=== PATIENT | male | born 1955 | race Hispanic/Latino ===

== ENCOUNTER 2017-09-08 11:47 | Day surgery (SDC) | payer BC ==
--- NOTE | 2017-09-07 14:40 | RAD REPORT ---
EXAM DESCRIPTION: RADOP - Outpt Chest Pa/Lat (2 Views) - 09/07/2017 2:00 pm CLINICAL HISTORY: Preop chest COMPARISON: May 2012 TECHNIQUE: PA and lateral views of the chest were obtained. FINDINGS: The lungs are clear. Lung markings are similar to comparison. No mediastinal or hilar abno rmality. Heart size is normal and central vasculature is within normal limits. No pleural effusion or pneumothorax seen. No acute bony finding noted. No acute aortic finding. No significant interval change. IMPRESSION: No acute cardiopulmonary process.
[2017-09-07 14:52] LABS: Urine Appearance CLEAR; Urine Bilirubin NEGATIVE (NEG); Urine Blood NEGATIVE (NEG); Urine Color YELLOW; Urine Glucose NEGATIVE (NEG); Urine Protein NEGATIVE (NEG)
[2017-09-07 15:00] LABS: Absolute Monocytes 0.4 K/uL (0.1-1.3); Absolute Neutrophil 3.3 K/uL (1.8-8.0); Basophils % 0.2 % (0-1.3); Eosinophils % 3.5 % (0-4.4); Hematocrit 38.5 % (39.6-49.0); Lymphocytes % 33.5 % (15.3-44.8); MCH 28.7 pg (27.0-35.0); MCV 84.1 fL (80-100); MPV 8.1 fL (7.6-11.3); Monocytes % 6.2 % (3.3-12.3); RBC Red Blood Cell Count 4.57 M/uL (4.33-5.43)
[2017-09-07 15:02] LABS: Urine Microscopic Reflex NO UMIC
[2017-09-07 15:03] LABS: Protime INR 1.06
[2017-09-07 15:11] LABS: BUN Blood Urea Nitrogen 12 mg/dL (6-20); Bicarbonate 26 mEq/L (21-31); Glomerular Filtration Rate > 90 mL/min (=/>90); Glucose Level 155 mg/dL (65-120); Potassium 4.1 mEq/L (3.6-5.0); Sodium Level 139 mEq/L (135-145)
--- NOTE | 2017-09-07 16:26 | EKG ---
Test Date: 2017-09-07 Test Time: 13:49:49 Medical Radiation Therapist: ANGELA MEASUREMENT RESULTS: Intervals: Rate: 73 WA: 184 QRSD: 106 QT: 382 QTc: 420 Murdock: P: 26 WA: 184 QRS: 28 T: 48 INTERPRETIVE STATEMENTS: Normal sinus rhythm Normal ECG Compared to ECG 04/22/2001 22:00:00 T-wave abnormality no longer present Electronically Signed On 09-07-17 16:24:28 CDT by Nish Delarosa
--- OUTSIDE RECORDS SUMMARY | 2017-09-08 11:58 | XMS REPORT ---
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 Problem Diabetes type 2, controlled E11.9 Active Problem Hyperlipemia, mixed E78.2 Active Assessment Allergic rhinitis, unspecified J30.9 Active seasonality, unspecified trigger Assessment Generalized osteoarthritis of M15.9 Active multiple sites Assessment Elevated PSA R97.20 Active Assessment Hyperlipemia, mixed E78.2 Active Medications Medication Code Code Instructions Start End Date Status Dosage System Date Aspirin [facility] 96498290063 81 MG Orally Active 1 tablet Once a day Lipitor ND 52575868420 10 MG Orally Active 1 tablet Once a day Metformin HCl ND 59327682268 1000 MG Orally Active 1 tablet Twice a day with meals Results No Known Results Summary Purpose eClinicalWorks Submission
[2017-09-08] MEDS ORDERED: NA CHLORIDE 0.9% 1,000 ML ONE (12:14)
[2017-09-08] MEDS: GENTAMICIN 80 MG/100 ML BAG 80 MG/100 ML BAG IV ONE ×3 (13:20→13:35)
[2017-09-08] MEDS ORDERED: PROPOFOL 200 MG/20 ML VIAL IV ONE (13:29)
[2017-09-08] MEDS ORDERED: FENTANYL CITR 100 MCG/2 ML ONE (13:29)
[2017-09-08] MEDS ORDERED: MIDAZOLAM HCL 2 MG/2 ML INJ ONE (13:29)
[2017-09-08] MEDS ORDERED: LIDOCAINE 2% MPF 5 ML VIAL ONE (13:30)
[2017-09-08] MEDS ORDERED: ONDANSETRON 4 MG/2 ML VIAL ONE (13:30)
[2017-09-08] MEDS ORDERED: PHENAZOPYRIDINE 100MG TAB PO ONE (15:13)
[2017-09-08] MEDS ORDERED: OXYBUTYNIN CHLORIDE 5 MG TAB ONE (15:14)
[2017-09-08] MEDS ORDERED: MEPERIDINE HCL 25 MG/0.5 ML ONE (15:25)
[2017-09-08 15:42] VITALS: BP 125/58; TEMP 97.9; O2SAT 95
== END 2017-09-08 16:10 | disposition home or self-care (01) ==
LOC: OR 11:47
PROVIDERS: ATTEND Urology
PROC: 0T7D8DZ Dilation of Urethra with Intraluminal Device, Via Natural or Artificial Opening Endoscopic (ICD-10-PCS; 2017-09-08)
PROC: 0VT08ZZ Resection of Prostate, Via Natural or Artificial Opening Endoscopic (ICD-10-PCS; principal; 2017-09-08 13:15)
DX: N40.1 Benign prostatic hyperplasia with lower urinary tract symptoms (principal); R39.12 Poor urinary stream; N42.9 Disorder of prostate, unspecified; R97.20 Elevated prostate specific antigen [PSA]; M15.9 Polyosteoarthritis, unspecified; E11.9 Type 2 diabetes mellitus without complications; K21.9 Gastro-esophageal reflux disease without esophagitis; Z88.0 Allergy status to penicillin; Z82.49 Family history of ischemic heart disease and other diseases of the circulatory system
CPT/HCPCS: 36415; 71046; 80048; 81003; 82962; 85025; 85610; 85730; 87086; 87088; 93005; J1580; J2175; J2250; J2405; J3010; J7030

== ENCOUNTER 2022-03-03 09:18 | Emergency (ER) | payer OTHER ==
--- OUTSIDE RECORDS SUMMARY | 2022-03-03 09:24 | XMS REPORT | Continuity of Care Document ---
:[address] [facility] t Address [address] [place] [address] Care Team Providers Name Role Phone Pcp, Patient Does Not Have A Primary Care Physician [id number] sAh Potts Attending Clinician Unavailable Nurse, Adc Pob Immunization Attending Clinician Unavailable Deepak Marsh DO Attending Clinician Problems This patient has no known problems. Allergies, Adverse Reactions, Alerts Allergy Allergy Status Severity Reaction(s) Onset Inactive Treating Comm ents Source Name Type Date Date Clinician penicill Adverse Active Info Not Commo n in Reaction Available [facility] Social History Social Habit Start Date Stop Date Quantity Comments Source Sex Assigned At [birth year] [facility] 00:00:00 00:00:00 Medical Branch Medications Ordered Filled Start Stop Current Ordering Indication Dosage Frequency Signature Comments Components Source Medication Medication Date Date Medication? Clinician (SIG) Name Name Metformin Metformin Yes Ash 1 tablet Common HCl HCl Potts with meals [facility] Montelukast Montelukast Yes Ash 1 tablet Common Sodium Sodium Potts in the [facility] Aspirin Aspirin Yes Ash 1 tablet Com mon Potts [facility] Lipitor Lipitor Yes Ash 1 tablet Com mon Potts [facility] Metformin Metformin Yes Ash TAKE 1 C ommon HCl HCl Potts TABLET BY Spirit MOUTH - CHI TWICE A DAY WITH [facility] Lipitor Lipitor Yes Ash 1 tablet Com mon Potts [facility] Immunizations Ordered Filled Immunization Date Status Comments Sour e Immunization Name Name SARS-COV-2 COVID-19 2020-10-18 Completed Unive rsity of PFIZER VACCINE 00:00:00 [place] [facility] Prevnar 13 Prevnar 13 2019-04-24 Completed [facility] - -Pneumonia Vaccine -Pneumonia Vaccine 00:00:00 [facility] FluAD FluAD 2019-04-07 Completed [facility] - 00:00:00 [facility] Procedures Procedure Date / Time Performed Performing Clinician [facility] e SARS-COV-2 COVID-19 2020-10-18 14:32:00 Doctor Unassigned, No [facility] [place] VACCINE,0.3ML,IM Name Medical Branch (PFIZER) Plan of Care Planned Activity Planned Date Details Comments Source Future Scheduled 2021-02-12 INFLUENZA VACCINE Univer [facility] Test 00:00:00 (Season Ended) [code = Medic al Branch INFLUENZA VACCINE (Season Ended)] Future Scheduled 2020-11-08 SARS[facility]-19[facility] Vaccine (2 - Pfizer Medical Branch 2-dose series) [code = SARS-CoV-2 (COVID-19) Vaccine (2 - Pfizer 2-dose series)] Future Scheduled 2018 Medicare Annual [facility] Test 00:00:00 Wellness Visit Medical [facility] (procedure) [code = 976313269344549] Future Scheduled 2018 PNEUMOCOCCAL VACCINES [facility] [place] Test 00:00:00 65+ (1 of 1 - PPSV23) Medica l Branch [code = PNEUMOCOCCAL VACCINES 65+ (1 of 1 - PPSV23)] Future Scheduled 2003-09-25 [facility] colorectal cancer Medical Br anch screening (procedure) [code = 098225377518522] Future Scheduled 2003-09-25 Flexible fiberoptic Univ ersity [facility] Test 00:00:00 sigmoidoscopy Medical Branch (procedure) [code = 66915073] Future Scheduled 2003-09-25 Screening for University [facility] Test 00:00:00 malignant neoplasm of Medica l Branch colon (procedure) [code = 757520826] Future Scheduled 2003-09-25 Screening for University [facility] Test 00:00:00 malignant neoplasm of Medica l Branch colon (procedure) [code = 573747954] Future Scheduled 2003-09-25 Zoster Recombinant [facility] [place] Test 00:00:00 Vaccine (SHINGRIX) (1 Medica l Branch of 2) [code = Zoster Recombinant Vaccine (SHINGRIX) (1 of 2)] Future Scheduled 2003-09-25 Screening for occult [facility] [place] Test 00:00:00 blood in feces Medical [facility] (procedure) [code = 165359493] Future Scheduled 1972 DTaP,Tdap,and Td [facility] [place] Test 00:00:00 Vaccines (1 - Tdap) Medical Branch [code = DTaP,Tdap,and Td Vaccines (1 - Tdap)] Future Scheduled 1971-09-25 Hepatitis C screening [facility] [place] Test 00:00:00 (procedure) [code = Medical Branch 833420944] Future Scheduled 1965 Depression screening [facility] [place] Test 00:00:00 (procedure) [code = Medical Branch 068786352] Encounters Start End Encounter Admission Attending Care Care Encounter Source Date/Time Date/Time Type Type Clinicians Facility Department ID 2022-02-05 Outpatient Potts, [facility] [id number] Common 10:41:01 Ash [facility] 2021-12-22 Outpatient Potts, [facility] [id number] Common 13:11:00 Ash [facility] 2021-11-07 Outpatient Potts, [facility] [id number] Common 12:19:00 Ash [facility] 2021-11-05 Outpatient Potts, [facility] [id number] Common 08:58:00 Ash [facility] 2021-10-10 Outpatient Potts, [facility] [id number] Common 10:27:01 Ash [facility] 2021-07-09 Outpatient Potts, [facility] ST[facility] [id number] Common 14:23:06 Ash 67027 [facility] 2021-07-09 Outpatient Potts, STLMLC STLMLC [id number] Common 13:08:38 Ash 62919 [facility] 2021-07-09 Outpatient Potts, STLMLC STLMLC [id number] Common 12:36:47 Ash 65864 [facility] 2021-07-09 Outpatient Potts, STLMLC STLMLC [id number] Common 12:36:24 Ash 45683 [facility] 2021-07-09 Outpatient Potts, STLMLC STLMLC [id number] Common 12:34:30 Ash 38369 [facility] 2021-07-09 Outpatient Potts, STLMLC STLMLC [id number] Common 11:19:29 Ash 55017 [facility] 2021-07-09 Outpatient Potts, STLMLC STLMLC [id number] Common 11:16:51 Ash 50955 [facility] 2021-07-09 Outpatient Potts, STLMLC STLMLC [id number] Common 11:04:36 Ash [id number] [facility] 2022-02-06 2022-02-06 ambulatory STLMLC STLMLC [id number] Common 00:00:00 00:00:00 [facility] 2021-11-07 2021-11-07 ambulatory STLMLC STLMLC [id number] Common 00:00:00 00:00:00 [facility] 2021-11-07 2021-11-07 ambulatory STLMLC STLMLC [id number] Common 00:00:00 00:00:00 [facility] 2021-05-16 2021-05-16 ambulatory STLMLC STLMLC [id number] Common 00:00:00 00:00:00 [facility] 2021-01-31 2021-01-31 Outpatient STLMLC STLMLC [id number] Common 00:00:00 00:00:00 [facility] 2021-01-31 2021-01-31 Outpatient STLMLC STLMLC [id number] Common 00:00:00 00:00:00 [facility] 2020-08-16 2020-08-16 Outpatient STLMLC STLMLC [id number] Common 00:00:00 00:00:00 [facility] 2020-05-17 2020-05-17 Outpatient STLMLC STLMLC [id number] Common 00:00:00 00:00:00 [facility] 2020-01-12 2020-01-12 [id number] Common 08:15:00 08:15:[address] [facility] 2019-10-11 2019-10-11 [facility] [id number] Common 15:30:00 15:30:[address] [facility] 2019-07-14 2019-07-14 [facility] [id number] Common 10:15:00 10:15:[address] [facility] 2019-05-18 2019-05-18 [facility] [id number] Common 16:02:00 16:02:[address] [facility] 2019-04-24 2019-04-24 [facility] [id number] Common 14:30:00 14:30:[address] [facility] 2019-04-07 2019-04-07 [facility] [id number] Common 10:00:00 10:00:[address] [facility] 2019-03-24 2019-03-24 [facility] [id number] Common 14:41:00 14:41:[address] [facility] 2018-08-16 2018-08-16 [facility] [id number] Common 09:15:00 09:15:[address] [facility] 2018-07-29 2018-07-29 [facility] [id number] Common 09:30:00 09:30:[address] [facility] 2018-07-25 2018-07-25 [facility] [id number] Common 10:03:00 10:03:[address] [facility] 2017-12-03 2017-12-03 [facility] [id number] Common 10:15:00 10:15:[address] [facility] 2017-09-30 2017-09-30 [facility] [id number] Common 13:00:00 13:00:[address] [facility] 2017-09-03 2017-09-03 [facility] [id number] Common 10:00:00 10:00:[address] [facility] Results This patient has no known results.
[2022-03-03] MEDS ORDERED: ACETAMINOPHEN 325 MG TABLET ONE (10:37)
--- NOTE | 2022-03-03 11:26 | RAD REPORT ---
EXAM DESCRIPTION: RAD - Chest Single View - 03/03/2022 10:56 am CLINICAL HISTORY: FEVER, flu-like symptoms COMPARISON: Two view chest August 2017 TECHNIQUE: AP portable chest image was obtained 03/03/2022 10:56 am . FINDINGS: No acute lung parenchymal process. Interstitial pattern matches comparison when adjusting for technique and inspiratory differences. No hilar mass or lymphadenopathy. Heart and vasculature ar e normal. No measurable pleural effusion and no pneumothorax. No acute bony abnormality seen. No acut e aortic findings suspected. IMPRESSION: No acute cardiopulmonary process. No significant change from comparison study.
[2022-03-03 12:05] LABS: Urine Blood Negative (Negative); Urine Glucose Negative (Negative); Urine Protein 1+ (Negative); Urine Specific Gravity >=1.030 (1.005-1.030); Urine pH 5.5 (5.0-7.0)
[2022-03-03 12:16] LABS: Absolute Lymphocytes (CBC) 0.9 K/uL (0.7-4.9); Hematocrit 37.5 % (39.6-49.0); MCV 83.5 fL (80-100); MPV 7.2 fL (7.6-11.3); RBC Red Blood Cell Count 4.49 M/uL (4.33-5.43)
[2022-03-03 12:41] LABS: Albumin 3.9 g/dL (3.4-5.0); Bilirubin Total 2.6 mg/dL (0.2-1.0); Potassium 3.9 mmol/L (3.5-5.1); Protein, Total 7.6 g/dL (6.4-8.2)
[2022-03-03 13:14] LABS: Protime INR 1.09
--- NOTE | 2022-03-03 13:46 | ER ---
Nurse's Notes [facility] Name: Von Hernandez Age: 66 yrs Sex: Male : 1955 Arrival Date: 03/03/2022 Time: 09:23 Bed 11 Private MD: Ash Potts Diagnosis: Viral Syndrome Presentation: 03/03 09:35 Chief complaint: Patient states: I have lots of cold and want to know why, my bones jh5 hurt. Coronavirus screen: Vaccine status: Patient reports receiving the 2nd dose of the covid vaccine. Client denies travel out of the [place] in the last 14 days. Ebola Screen: Patient negative for fever greater than or equal to 101.5 degrees Fahrenheit, and additional compatible Ebola Virus Disease symptoms Patient denies exposure to infectious person. Patient denies travel to an Ebola-affected area in the 21 days before illness onset. Initial Sepsis Screen: Does the patient meet any 2 criteria? No. Patient's initial sepsis screen is negative. Does the patient have a suspected source of infection? No. Patient's initial sepsis screen is negative. Risk Assessment: Do you want to hurt yourself or someone else? Patient reports no desire to harm self or others. Onset of symptoms was March 03, 2022. 09:35 Method Of Arrival: Ambulatory [facility] 09:35 Acuity: JOSTIN 4 jh5 Triage Assessment: 09:37 General: Appears in no apparent distress. Behavior is calm, cooperative, appropriate jh5 for age. Pain: Denies pain. Historical: - Allergies: 09:37 PENICILLINS; jh5 - Immunization history:: Adult Immunizations up to date. - Social history:: Smoking status: Patient denies any tobacco usage or history of. Patient uses. Screenin:46 Abuse screen: Denies threats or abuse. Nutritional screening: No deficits noted. ap3 Tuberculosis screening: No symptoms or risk factors identified. Fall Risk None identified. Assessment: 11:46 Reassessment: No changes from previously documented assessment. Patient and/or family ap3 updated on plan of care and expected duration. Pain level reassessed. Patient is alert, oriented x 3, equal unlabored respirations, skin warm/dry/pink. 12:05 Reassessment: No changes from previously documented assessment. Patient and/or family ap3 updated on plan of care and expected duration. Pain level reassessed. Patient is alert, oriented x 3, equal unlabored respirations, skin warm/dry/pink. 13:17 Reassessment: Patient and/or family updated on plan of care and expected duration. Pain ap3 level reassessed. Patient is alert, oriented x 3, equal unlabored respirations, skin warm/dry/pink. Vital Signs: 09:35 BP 157 / 86; Pulse 96; Resp 18; Temp 100.6; Pulse Ox 99% ; Weight 78.02 kg; Height 5 [facility] ft. 3 in. (160.02 cm); Pain 0/10; 09:35 Body Mass Index 30.47 (78.02 kg, 160.02 cm) [facility] ED Course: 09:23 Patient arrived in ED. mr 09:24 Ash Potts DO is Private Physician. mr 09:29 Chang Barger PA is PHCP. [facility] 09:29 Leida Richey MD is Attending Physician. [facility] 09:37 Triage completed. [facility] 09:37 Arm band placed on right wrist. [facility] 10:15 Laurita Pettit, RN is Primary Nurse. ap3 10:58 Chest Single View XRAY In Process Unspecified. EDMS 11:46 Patient has correct armband on for positive identification. Bed in low position. Call ap3 light in reach. Side rails up X 1. Pulse ox on. NIBP on. Door closed. Noise minimized. 11:59 Inserted saline lock: 20 gauge in right forearm, using aseptic technique. Blood kc6 collected. 11:59 [place] Screen Profile Sent. kc6 11:59 PT-INR Sent. kc6 12:00 Lactate Sent. kc6 12:00 CMP Sent. kc6 12:00 CBC with Diff Sent. kc6 12:00 Strep Sent. kc6 12:05 Urine Culture Sent. kc6 13:45 Ash Potts DO is Referral Physician. [facility] 14:02 No provider procedures requiring assistance completed. intact, bleeding controlled, No ap3 redness/swelling at site. Pressure dressing applied. Administered Medications: 10:30 Drug: Acetaminophen 650 mg Route: PO; ap3 11:41 Follow up: Response: No adverse reaction; Pain is decreased ap3 Medication: 11:46 VIS not applicable for this client. ap3 Outcome: 13:46 Discharge ordered by MD. michele 14:02 Discharged to home ambulatory. ap3 14:02 Condition: good 14:02 Discharge instructions given to patient, Instructed on discharge instructions, follow up and referral plans. Demonstrated understanding of instructions, follow-up care. 14:02 Patient left the ED. ap3 Signatures: Dispatcher [employer] EDMS Chang Barger PA PA jmm Lashaun Becker mr Laurita diaz RN RN ap3 Jennie Edwards RN RN 5 Beth Cortes 6
--- NOTE | 2022-03-03 13:46 | EDPHYS ---
Physician Documentation [facility] Name: Von Hernandez Age: 66 yrs Sex: Male : 1955 Arrival Date: 03/03/2022 Time: 09:23 Bed 11 Private MD: Lashon Pottsh ED Physician Leida Richey HPI: 03/03 09:40 This 66 yrs old Male presents to ER via Ambulatory with complaints of Flu jmm Symptoms. 09:40 Onset: The symptoms/episode began/occurred gradually, 5 day(s) ago. This is a jmm 66-year-old male presents emergency department with complaints of body aches, headache, fever beginning approximately 5 days ago. Patient states previously he was diagnosed with pneumonia when he presented with similar symptoms. Denies sore throat, cough, shortness of breath, abdominal pain, vomiting, diarrhea.. Historical: - Allergies: 09:37 PENICILLINS; jh5 - Immunization history:: Adult Immunizations up to date. - Social history:: Smoking status: Patient denies any tobacco usage or history of. Patient uses. ROS: 09:40 Constitutional: Positive for body aches, fever. jmm 09:40 Neuro: Positive for headache. 09:40 All other systems are negative. Exam: 09:40 Constitutional: This is a well developed, well nourished patient who is awake, alert, jmm and in no acute distress. Head/Face: atraumatic. Eyes: EOMI, no conjunctival erythema appreciated ENT: Moist Mucus Membranes Neck: Trachea midline, Supple Chest/axilla: Normal chest wall appearance and motion. Cardiovascular: Regular rate and rhythm. No edema appreciated Respiratory: Normal respirations, no respiratory distress appreciated Abdomen/GI: Non distended Back: Normal ROM Skin: General appearance color normal MS/ Extremity: Moves all extremities, no obvious deformities appreciated, no edema noted to the lower extremities Neuro: Awake and alert Psych: Behavior is normal, Mood is normal, Patient is cooperative and pleasant Vital Signs: 09:35 BP 157 / 86; Pulse 96; Resp 18; Temp 100.6; Pulse Ox 99% ; Weight 78.02 kg; Height 5 jh5 ft. 3 in. (160.02 cm); Pain 0/10; 09:35 Body Mass Index 30.47 (78.02 kg, 160.02 cm) jh5 MDM: 10:30 Patient medically screened. [facility] 13:45 Data reviewed: vital signs, nurses notes. Counseling: I had a detailed discussion with [facility] the patient and/or guardian regarding: the historical points, exam findings, and any diagnostic results supporting the discharge/admit diagnosis, the need for outpatient follow up, to return to the emergency department if symptoms worsen or persist or if there are any questions or concerns that arise at home. 15:21 Refusal of service: The patient/guardian displays adequate decision making capability [facility] and despite a detailed discussion of alternatives, benefits, risks, and consequences refuses: Lumbar Puncture procedure. 15:21 ED course: Patient states feeling much better. Labs were unremarkable. I did discuss leny possibly viral meningitis causing his symptoms. And he would need a spinal tap for further evaluation. Patient declined. Patient otherwise given strict return precautions. Patient understood agrees plan of care.. 03/03 09:40 Order name: COVID-19 SARS RT PCR (Document "Date of Onset" if Symptomatic); Complete bd Time: 10:59 03/03 09:40 Order name: Flu; Complete Time: 10:39 bd 03/03 11:27 Order name: Strep; Complete Time: 12:53 [facility] 03/03 11:27 Order name: CBC with Diff; Complete Time: 12:30 [facility] 03/03 11:27 Order name: CMP; Complete Time: 12:45 [facility] 03/03 11:27 Order name: Lactate; Complete Time: 12:40 [facility] 03/03 10:39 Order name: Chest Single View XRAY; Complete Time: 11:27 [facility] 03/03 11:28 Order name: Urine Dipstick-Ancillary (obtain specimen); Complete Time: 12:05 [facility] 03/03 11:28 Order name: Urine Culture [facility] 03/03 11:28 Order name: PT-INR; Complete Time: 13:21 [facility] 03/03 11:28 Order name: [place] Screen Profile; Complete Time: 13:21 [facility] 03/03 12:05 Order name: Urine Dipstick-Ancillary; Complete Time: 12:05 EDMS 03/03 12:53 Order name: Throat Culture EDMS Administered Medications: 10:30 Drug: Acetaminophen 650 mg Route: PO; ap3 11:41 Follow up: Response: No adverse reaction; Pain is decreased ap3 Disposition Summary: 03/03/22 13:46 Discharge Ordered Location: Home [facility] Condition: Stable [facility] Diagnosis - Viral Syndrome [facility] Followup: [facility] - With: Ash Potts, DO - When: 1 - 2 days - Reason: Recheck today's complaints, Continuance of care, Re-evaluation by your physician Discharge Instructions: - Discharge Summary Sheet [facility] - Viral Illness, Adult [facility] Forms: - Medication Reconciliation Form [facility] - Thank You Letter [facility] - Antibiotic Education [facility] - Work release form [facility] - Prescription Opioid Use [facility] Signatures: Dispatcher [employer] EDMS Chang Barger PA PA jmm Prokisch, Amanda RN RN ap3 Jennie Edwards RN RN jh5
[2022-03-04 16:10] VITALS: BP 157/86; TEMP 100.6; O2SAT 99
== END 2022-03-03 14:02 | disposition home or self-care (01) ==
LOC: ER 09:18
DX: B34.9 Viral infection, unspecified (principal); Z88.0 Allergy status to penicillin; Z20.822 Contact with and (suspected) exposure to COVID-19
CPT/HCPCS: 87070; 87088; 85025; 87086; 36415; 86308; 85610; 87081; 83605; 81003; 80053; 87804 ×2; 71045; U0003; 99284

== ENCOUNTER 2022-07-16 09:33 | Emergency (ER) | payer OTHER ==
--- NOTE | 2022-07-16 09:53 | ER ---
Nurse's Notes [facility] Name: Von Hernandez Age: 66 yrs Sex: Male : 1955 Arrival Date: 07/16/2022 Time: 09:37 Bed 12 Private MD: Diagnosis: Acute sinusitis, unspecified Presentation: 07/16 09:48 Chief complaint: Patient states: Sinus congestion, HIGHTOWER, sinus pressure for 1 month. ll1 Coronavirus screen: Vaccine status: Patient reports receiving the 2nd dose of the covid vaccine. Client denies travel out of the [place] in the last 14 days. At this time, the client does not indicate any symptoms associated with coronavirus-19. Ebola Screen: Patient denies travel to an Ebola-affected area in the 21 days before illness onset. Initial Sepsis Screen: Does the patient meet any 2 criteria? No. Patient's initial sepsis screen is negative. Does the patient have a suspected source of infection? Yes: Other: sinus infection. Risk Assessment: Do you want to hurt yourself or someone else? Patient reports no desire to harm self or others. Onset of symptoms was June 15, 2022. 09:48 Method Of Arrival: Ambulatory ll1 09:48 Acuity: JOSTIN 4 ll1 Historical: - Allergies: 09:48 PENICILLINS; ll1 - PMHx: 09:48 Diabetes mellitus; Hypercholesterolemia; ll1 - PSHx: 09:48 hernia repair; ll1 - Immunization history:: Adult Immunizations up to date. - Social history:: Smoking status: Patient denies any tobacco usage or history of. Screenin:04 [facility] ED Fall Risk Assessment (Adult) History of falling in the last 3 months, ss including since admission No falls in past 3 months (0 pts). Abuse screen: Denies threats or abuse. Denies injuries from another. Nutritional screening: No deficits noted. Tuberculosis screening: Never had TB. Assessment: 10:04 General: Appears in no apparent distress. comfortable, Behavior is calm, cooperative. ss Neuro: Level of Consciousness is awake, alert, obeys commands. Cardiovascular: Capillary refill < 3 seconds is brisk in bilateral fingers. Respiratory: Airway is patent Respiratory effort is even, unlabored, Respiratory pattern is regular, symmetrical. Derm: Skin is intact, is healthy with good turgor, Skin is pink, warm \T\ dry. normal. Vital Signs: 09:48 BP 158 / 88; Pulse 77; Resp 20; Temp 99.1; Pulse Ox 100% ; Weight 77.11 kg; Height 5 ll1 ft. 3 in. (160.02 cm); Pain 8/10; 09:48 Body Mass Index 30.11 (77.11 kg, 160.02 cm) ll1 ED Course: 09:37 Patient arrived in ED. rg4 09:43 Viky Delacruz FNP-C is [facility]. kb 09:43 Salvador Healy DO is Attending Physician. kb 09:48 Arm band placed on. ll1 09:50 Triage completed. ll1 10:04 Adriana Spivey RN is Primary Nurse. ss 10:04 Patient has correct armband on for positive identification. ss 10:04 No provider procedures requiring assistance completed. Patient did not have IV access ss during this emergency room visit. Administered Medications: 09:55 Drug: Decadron (dexamethasone) 10 mg Route: IM; Site: left gluteus; ll1 10:05 Follow up: Response: No adverse reaction ss Medication: 10:04 VIS not applicable for this client. ss Outcome: 09:53 Discharge ordered by MD. kb 10:05 Discharged to home ambulatory. ss 10:05 Condition: good 10:05 Discharge instructions given to patient, family, Instructed on discharge instructions, follow up and referral plans. medication usage, Demonstrated understanding of instructions, follow-up care, medications, Prescriptions given X 2. 10:05 Patient left the ED. ss Signatures: Viky Delacruz FNP-C [employer] Adriana Spivey RN RN Destini Jimenez rg4 Charito Ramirez RN RN 1
--- NOTE | 2022-07-16 09:54 | EDPHYS ---
Physician Documentation [facility] Name: Von Hernandez Age: 66 yrs Sex: Male : 1955 Arrival Date: 07/16/2022 Time: 09:37 Bed 12 Private MD: ED Physician Salvador Healy HPI: 07/16 09:48 This 66 yrs old Male presents to ER via Unassigned with complaints of Sinus kb Congestion. 09:48 The patient or guardian reports Sinus pressure, congestion, headaches. Onset: The kb symptoms/episode began/occurred 1 month(s) ago. Severity of symptoms: At their worst the symptoms were moderate, in the emergency department the symptoms are unchanged. Modifying factors: The symptoms are alleviated by nothing, the symptoms are aggravated by nothing. Associated signs and symptoms: Pertinent positives: rhinorrhea, Pertinent negatives: chest pain, diarrhea, ear ache, fever, nausea, sore throat, vomiting. The patient has experienced similar episodes in the past. The patient has not recently seen a physician. Patient reports nasal congestion, sinus pressure and headaches for 1 month. States has been taking Benadryl which helped rhinorrhea but has not cleared sinuses.. Historical: - Allergies: 09:48 PENICILLINS; ll1 - PMHx: 09:48 Diabetes mellitus; Hypercholesterolemia; ll1 - PSHx: 09:48 hernia repair; ll1 - Immunization history:: Adult Immunizations up to date. - Social history:: Smoking status: Patient denies any tobacco usage or history of. ROS: 09:49 Constitutional: Negative for fever, chills, and weight loss. kb 09:49 ENT: Positive for sinus congestion, sinus pain. 09:49 Neuro: Positive for headache. 09:49 All other systems are negative. Exam: 09:49 Constitutional: This is a well developed, well nourished patient who is awake, alert, kb and in no acute distress. Cardiovascular: Regular rate and rhythm with a normal S1 and S2. No gallops, murmurs, or rubs. No pulse deficits. Respiratory: Respirations even and unlabored. No increased work of breathing. Talking in full sentences Abdomen/GI: Soft, non-tender. No distention Skin: Warm, dry with normal turgor. Normal color. MS/ Extremity: Pulses equal, no cyanosis. Neurovascular intact. Full, normal range of motion. Neuro: Awake and alert, GCS 15, oriented to person, place, time, and situation. Moves all extremities. Normal gait. 09:49 Head/face: Sinus tenderness, that is moderate, is located over the right frontal sinus, left frontal sinus, right ethmoid sinus and left ethmoid sinus. Vital Signs: 09:48 BP 158 / 88; Pulse 77; Resp 20; Temp 99.1; Pulse Ox 100% ; Weight 77.11 kg; Height 5 ll1 ft. 3 in. (160.02 cm); Pain 8/10; 09:48 Body Mass Index 30.11 (77.11 kg, 160.02 cm) ll1 MDM: 09:43 Patient medically screened. kb 09:49 Data reviewed: vital signs, nurses notes. Test considered but Not performed: Labs: Flu kb and COVID test considered but would not change plan of care. Counseling: I had a detailed discussion with the patient and/or guardian regarding: the historical points, exam findings, and any diagnostic results supporting the discharge/admit diagnosis, the need for outpatient follow up, a family practitioner, to return to the emergency department if symptoms worsen or persist or if there are any questions or concerns that arise at home. ED course: Patient is a 66-year-old male with sinus congestion and pressure as well as headache for 1 month. Physical exam positive for tenderness to sinuses. Lungs clear throughout, no respiratory distress. Discussed steroids and antibiotics due to length of illness. Patient in agreement with plan of care.. Administered Medications: 09:55 Drug: Decadron (dexamethasone) 10 mg Route: IM; Site: left gluteus; ll1 10:05 Follow up: Response: No adverse reaction ss Disposition: 19:19 Co-signature as Attending Physician, Salvador Healy DO I reviewed the patient's care ms3 provided by the Advanced Practice Provider and agree with the diagnosis and treatment plan. Disposition Summary: 07/16/22 09:53 Discharge Ordered Location: Home kb Condition: Stable kb Diagnosis - Acute sinusitis, unspecified kb Followup: kb - With: Emergency Department - When: As needed - Reason: Worsening of condition Followup: kb - With: Private Physician - When: 2 - 3 days - Reason: Recheck today's complaints, Continuance of care, Re-evaluation by your physician Discharge Instructions: - Sinusitis, Adult, [id number] kb - Discharge Summary Sheet ll1 Forms: - Medication Reconciliation Form kb - Thank You Letter kb - Work release form ll1 - Antibiotic Education kb - Prescription Opioid Use kb Prescriptions: - Prednisone 20 mg Oral Tablet - take 1 tablet by ORAL route once daily for 5 days; 5 tablet; Refills: 0, kb Product Selection Permitted - Doxycycline Hyclate 100 mg Oral Tablet - take 1 tablet by ORAL route every 12 hours; 20 tablet; Refills: 0, Product kb Selection Permitted Signatures: Viky Delacruz, [employer]-C [employer]-Charito Peña, RN RN ll1 Salvador Healy DO DO ms3 Adriana Spivey RN ss
[2022-07-16] MEDS ORDERED: dexAMETHasone 10 MG/ML VIAL ONE (09:55)
--- OUTSIDE RECORDS SUMMARY | 2022-07-16 10:03 | XMS REPORT | Continuity of Care Document ---
:1955 Author Organization [facility] t Address [address] [place] [address] Care Team Providers Name Role Phone Pcp, Patient Does Not Have A Primary Care Physician [phone] Ash Potts Attending Clinician Unavailable Nurse, Adc Pob Immunization Attending Clinician Unavailable Deepak Marsh DO Attending Clinician Payers Payer Name Policy Type Policy Number Effective Date Expiration Date S [place] [id number] 2020 Common [facility] 00:00:00 Spirit - C HI SOLUTIONS [facility] MEDICARE NOVITAS [id number] 2020 Common 00:00:00 [facility] Problems Condition Condition Condition Status Onset Resolution Last Treating Co mments Source Name Details Category Date Date Treatment Clinician Date Elevated Elevated Problem Commo n PSA PSA [facility] Vomiting Vomiting Problem Commo n without without Spirit nausea nausea, - [facility] vomiting [facility] unspecifie Medica l d type Center Generalize Generalize Problem C ommon d d Spirit osteoarthr osteoarthr - [facility] itis itis of [facility] Type II Diabetes Problem Common diabetes type 2, Spirit mellitus controlled - CH I well controlled [facility] [id number] Adult BMI Problem Com mon 32.0-32.9 Spirit kg/sq [facility] Abdominal Abdominal Problem Com [facility] pain pain [facility] [id number] Type 2 Problem Common diabetes [facility] mellitus [facility] with [facility] without Center long-term current use of insulin Urinary Urinary Problem Common frequency frequency Spir it [facility] Seasonal Allergic Problem Commo n allergic rhinitis, Spiri t rhinitis seasonal [facility] Mixed Hyperlipem Problem Commo n hyperlipid ia, mixed Spi rit emia [facility] [id number] Allergic Problem Commo n rhinitis, Spirit unspecifie [facility] d [facility], Medical unspecifie Center d trigger [id number] Vitamin D Problem Comm on deficiency [facility] disease [facility] Allergies, Adverse Reactions, Alerts Allergy Allergy Status Severity Reaction(s) Onset Inactive Treating Comm ents Source Name Type Date Date Clinician Penicill Penicill Active Unknown Commo n in in [facility] Social History Social Habit Start Date Stop Date Quantity Comments Source History of Tobacco Use Co mmon [facility] Sex Assigned At Com mon [facility] Smoking Status Start Date Stop Date Source Never Smoker Common [facility] Medications Ordered Filled Start Stop Current Ordering Indication Dosage Frequency Signature Comments Components Source Medication Medication Date Date Medication? Clinician (SIG) Name Name Florencio Matias No 40mg Common (Triamcinol (Triamcinol 3-05 S pirit one) one) 00:00: - [facility] Florencio Matias No 40mg Common (Triamcinol (Triamcinol 3-05 S pirit one) one) 00:00: - [facility] Florencio Matias No 40mg Common (Triamcinol (Triamcinol 3-05 S pirit one) one) 00:00: - [facility] Florencio Matias No 40mg Common (Triamcinol (Triamcinol 3-05 S pirit one) one) 00:00: - [facility] Florencio Matias No 40mg Common (Triamcinol (Triamcinol 4-19 S pirit one) one) 00:00: - [facility] 00 [facility] No 40mg Common (Triamcinol (Triamcinol 4-19 S pirit one) one) 00:00: - [facility] No 40mg Common (Triamcinol (Triamcinol 4-19 S pirit one) one) 00:00: - [facility] No 40mg Common (Triamcinol (Triamcinol 4-19 S pirit one) one) 00:00: - [facility] 00 [facility] Metformin Metformin Yes Ash 1 tablet Common HCl HCl Potts with meals [facility] Montelukast Montelukast Yes Ash 1 tablet Common Sodium Sodium Potts in the Spirit evening [facility] Aspirin Aspirin Yes Ash 1 tablet Com mon [facility] Lipitor Lipitor Yes Ash 1 tablet Com mon Potts [facility] Metformin Metformin Yes Ash TAKE 1 C ommon HCl HCl Potts TABLET BY [facility] MOUTH [facility] TWICE A DAY WITH [facility] Lipitor Lipitor Yes Ash 1 tablet Com mon [facility] Atorvastati Atorvastati No Atorvastat n Calcium n Calcium in Calcium 10 MG 10 MG 10 MG Lipitor 10 Lipitor 10 No 1{table QD Lipitor 10 MG MG t} MG Aspirin 81 Aspirin 81 No 1{table QD Aspirin 81 MG MG t} MG metFORMIN metFORMIN No metFORMIN HCl 1000 MG HCl 1000 MG HCl 1000 MG metFORMIN metFORMIN No metFORMIN HCl 1000 MG HCl 1000 MG HCl 1000 MG Aspirin 81 Aspirin 81 No 1{table QD Aspirin 81 MG MG t} MG metFORMIN metFORMIN No 1{table BID metFORMIN HCl 1000 MG HCl 1000 MG t_with_ HCl 1000 meals} MG Lipitor 10 Lipitor 10 No 1{table QD Lipitor 10 MG MG t} MG Montelukast Montelukast No 1{table QD Montelukas Sodium 10 Sodium 10 t_in_th t Sodium MG MG e_eveni 10 MG ng} Atorvastati Atorvastati No Atorvastat n Calcium n Calcium in Calcium 10 MG 10 MG 10 MG Lipitor 10 Lipitor 10 No 1{table QD Lipitor 10 MG MG t} MG metFORMIN metFORMIN No metFORMIN HCl 1000 MG HCl 1000 MG HCl 1000 MG Aspirin 81 Aspirin 81 No 1{table QD Aspirin 81 MG MG t} MG metFORMIN metFORMIN No 1{table BID metFORMIN HCl 1000 MG HCl 1000 MG t_with_ HCl 1000 meals} MG Atorvastati Atorvastati No Atorvastat n Calcium n Calcium in Calcium 10 MG 10 MG 10 MG Montelukast Montelukast No 1{table QD Montelukas Sodium 10 Sodium 10 t_in_th t Sodium MG MG e_eveni 10 MG ng} metFORMIN metFORMIN No 1{table BID metFORMIN HCl 1000 MG HCl 1000 MG t_with_ HCl 1000 meals} MG Atorvastati Atorvastati No Atorvastat n Calcium n Calcium in Calcium 10 MG 10 MG 10 MG metFORMIN metFORMIN No metFORMIN HCl 1000 MG HCl 1000 MG HCl 1000 MG Lipitor 10 Lipitor 10 No 1{table QD Lipitor 10 MG MG t} MG Aspirin 81 Aspirin 81 No 1{table QD Aspirin 81 MG MG t} MG Montelukast Montelukast No 1{table QD Montelukas Sodium 10 Sodium 10 t_in_th t Sodium MG MG e_eveni 10 MG ng} Montelukast Montelukast No 1{table QD Montelukas Sodium 10 Sodium 10 t_in_th t Sodium MG MG e_eveni 10 MG ng} metFORMIN metFORMIN No 1{table BID metFORMIN HCl 1000 MG HCl 1000 MG t_with_ HCl 1000 meals} MG Atorvastati Atorvastati No Atorvastat n Calcium n Calcium in Calcium 10 MG 10 MG 10 MG Lipitor 10 Lipitor 10 No 1{table QD Lipitor 10 MG MG t} MG Aspirin 81 Aspirin 81 No 1{table QD Aspirin 81 MG MG t} MG metFORMIN metFORMIN No metFORMIN HCl 1000 MG HCl 1000 MG HCl 1000 MG Montelukast Montelukast No 1{table QD Montelukas Sodium 10 Sodium 10 t_in_th t Sodium MG MG e_eveni 10 MG ng} metFORMIN metFORMIN No 1{table BID metFORMIN HCl 1000 MG HCl 1000 MG t_with_ HCl 1000 meals} MG Immunizations Ordered Filled Immunization Date Status Comments Sourc e Immunization Name Name Fluzone Orlandozone 2021-05-16 Completed Common Spirit - 09:16:00 [facility] Fluzone Fluzone 2021-05-16 Completed Common [facility] - 09:16:00 [facility] Fluzone Fluzone 2021-05-16 Completed Common [facility] - 09:16:00 [facility] Fluzone Fluzone 2021-05-16 Completed [facility] - 09:16:00 [facility] Fluzone Fluzone 2021-05-16 Completed Common [facility] - 09:16:00 [facility] SARS-COV-2 COVID-19 2020-10-18 Completed Unive rsity of PFIZER VACCINE 00:00:00 [facility] FluAD FluAD 2020-05-17 Completed Common Spirit - 11:07:00 [facility] FluAD FluAD 2020-05-17 Completed Common [facility] - 11:07:00 [facility] FluAD FluAD 2020-05-17 Completed [facility] - 11:07:00 [facility] FluAD FluAD 2020-05-17 Completed [facility] - 11:07:00 [facility] FluAD FluAD 2020-05-17 Completed [facility] - 11:07:00 [facility] Prevnar 13 Prevnar 13 2019-04-24 Completed [facility] - -Pneumonia Vaccine -Pneumonia Vaccine 14:35:00 [facility] Prevnar 13 Prevnar 13 2019-04-24 Completed [facility] - -Pneumonia Vaccine -Pneumonia Vaccine 14:35:00 [facility] Prevnar 13 Prevnar 13 2019-04-24 Completed [facility] - -Pneumonia Vaccine -Pneumonia Vaccine 14:35:00 [facility] Prevnar 13 Prevnar 13 2019-04-24 Completed [facility] - -Pneumonia Vaccine -Pneumonia Vaccine 14:35:00 [facility] Prevnar 13 Prevnar 13 2019-04-24 Completed [facility] - -Pneumonia Vaccine -Pneumonia Vaccine 14:35:00 [facility] Prevnar 13 Prevnar 13 2019-04-24 Completed [facility] - -Pneumonia Vaccine -Pneumonia Vaccine 00:00:00 [facility] FluAD FluAD 2019-04-07 Completed [facility] - 09:36:00 [facility] FluAD FluAD 2019-04-07 Completed [facility] - 09:36:00 [facility] FluAD FluAD 2019-04-07 Completed [facility] - 09:36:00 [facility] FluAD FluAD 2019-04-07 Completed [facility] - 09:36:00 [facility] FluAD FluAD 2019-04-07 Completed [facility] - 09:36:00 [facility] FluAD FluAD 2019-04-07 Completed [facility] - 00:00:00 [facility] Adacel (Tdap) Adacel (Tdap) 2018-04-22 Completed Common S pirit - 11:34:00 [facility] Adacel (Tdap) Adacel (Tdap) 2018-04-22 Completed Common S pirit - 11:34:00 [facility] Adacel (Tdap) Adacel (Tdap) 2018-04-22 Completed Common S pirit - 11:34:00 [facility] Adacel (Tdap) Adacel (Tdap) 2018-04-22 Completed Common S pirit - 11:34:00 [facility] Adacel (Tdap) Adacel (Tdap) 2018-04-22 Completed Common S pirit - 11:34:00 [facility] Afluria Afluria 2018-04-22 Completed Common Spirit - 11:33:00 [facility] Afluria Afluria 2018-04-22 Completed [facility] - 11:33:00 [facility] Afluria Afluria 2018-04-22 Completed [facility] - 11:33:00 [facility] Afluria Afluria 2018-04-22 Completed [facility] - 11:33:00 [facility] Afluria Afluria 2018-04-22 Completed [facility] - 11:33:00 [facility] Vital Signs Vital Name Observation Time Observation Value Comments Source height 2022-05-08 10:10:00 63 [in_i] Common S pirit - [facility] weight 2022-05-08 10:10:00 172 [lb_av] Common S pirit - [facility] temperature 2022-05-08 10:10:00 98.5 [degF] Common S pirit [facility] bmi 2022-05-08 10:10:00 30.47 kg/m2 Common S pirit [facility] oximetry 2022-05-08 10:10:00 97 % [facility] respiratory rate 2022-05-08 10:10:00 17 /min Comm on [facility] blood pressure 2022-05-08 10:10:00 135 mm[Hg] Common [facility] - systolic [facility] blood pressure 2022-05-08 10:10:00 70 mm[Hg] Common [facility] - diastolic [facility] height 2022-02-06 10:00:00 63 [in_i] Common S [facility] weight 2022-02-06 10:00:00 178.0 [lb_av] [facility] temperature 2022-02-06 10:00:00 98.2 [degF] [facility] bmi 2022-02-06 10:00:00 31.53 kg/m2 [facility] oximetry 2022-02-06 10:00:00 96 % [facility] respiratory rate 2022-02-06 10:00:00 17 /min Comm on [facility] blood pressure 2022-02-06 10:00:00 138 mm[Hg] Common [facility] - systolic [facility] blood pressure 2022-02-06 10:00:00 62 mm[Hg] Common [facility] - diastolic [facility] height 2021-11-07 09:10:00 63 [in_i] Common S [facility] weight 2021-11-07 09:10:00 175.0 [lb_av] [facility] temperature 2021-11-07 09:10:00 98.2 [degF] [facility] bmi 2021-11-07 09:10:00 31 kg/m2 [facility] S [facility] oximetry 2021-11-07 09:10:00 98 % Common S [facility] respiratory rate 2021-11-07 09:10:00 18 /min Comm on [facility] blood pressure 2021-11-07 09:10:00 136 mm[Hg] Common [facility] - systolic [facility] blood pressure 2021-11-07 09:10:00 76 mm[Hg] [facility] diastolic [facility] height 2021-05-16 09:50:00 63 [in_i] [facility] weight 2021-05-16 09:50:00 185.1 [lb_av] [facility] temperature 2021-05-16 09:50:00 98.8 [degF] [facility] bmi 2021-05-16 09:50:00 32.79 kg/m2 [facility] oximetry 2021-05-16 09:50:00 97 % [facility] respiratory rate 2021-05-16 09:50:00 17 /min Comm on [facility] blood pressure 2021-05-16 09:50:00 132 mm[Hg] [facility] systolic [facility] blood pressure 2021-05-16 09:50:00 67 mm[Hg] [facility] diastolic [facility] Procedures Procedure Date / Time Performed Performing Clinician [facility] barbara SARS-COV-2 COVID-19 2020-10-18 14:32:00 [facility],IM Name Medical Branch (PFIZER) Plan of Care Planned Activity Planned Date Details Comments Source Future Scheduled 2021-02-12 [facility] ([facility] Ended) [code = Medic al Branch INFLUENZA VACCINE (Season Ended)] Future Scheduled 2020-11-08 SARS-CoV-2 (COVID-19) [facility]00 Vaccine (2 - Pfizer Medical Branch 2-dose series) [code = SARS-CoV-2 (COVID-19) Vaccine (2 - Pfizer 2-dose series)] Future Scheduled 2018 Medicare Annual Universi ty [facility] Test 00:00:00 Wellness Visit Medical [facility] h (procedure) [code = 934736069383332] Future Scheduled 2018 PNEUMOCOCCAL VACCINES [facility] [place] Test 00:00:00 65+ (1 of 1 - PPSV23) Medica l Branch [code = PNEUMOCOCCAL VACCINES 65+ (1 of 1 - PPSV23)] Future Scheduled 2003-09-25 Flexible fiberoptic [facility] [place] Test 00:00:00 sigmoidoscopy Medical Branch (procedure) [code = 18899770] Future Scheduled 2003-09-25 Screening for University [facility] Test 00:00:00 malignant neoplasm of Medica l Branch colon (procedure) [code = 840974414] Future Scheduled 2003-09-25 Screening for University [facility] Test 00:00:00 malignant neoplasm of Medica l Branch colon (procedure) [code = 304609502] Future Scheduled 2003-09-25 Zoster Recombinant [facility] [place] Test 00:00:00 Vaccine (SHINGRIX) (1 Medica l Branch of 2) [code = Zoster Recombinant Vaccine (SHINGRIX) (1 of 2)] Future Scheduled 2003-09-25 Screening for occult [facility] [place] Test 00:00:00 blood in feces Medical Branc h (procedure) [code = 201538429] Future Scheduled 2003-09-25 Stool DNA-based [facility] [place] Test 00:00:00 colorectal cancer Medical Br anch screening (procedure) [code = 775491001452317] Future Scheduled 1972 DTaP,Tdap,and Td [facility] [place] Test 00:00:00 Vaccines (1 - Tdap) Medical Branch [code = DTaP,Tdap,and Td Vaccines (1 - Tdap)] Future Scheduled 1971-09-25 Hepatitis C screening [facility] [place] Test 00:00:00 (procedure) [code = Medical Branch 883978149] Future Scheduled 1965 Depression screening [facility] [place] Test 00:00:00 (procedure) [code = Medical Branch 457144449] Encounters Start End Encounter Admission Attending Care Care Encounter Source Date/Time Date/Time Type Type Clinicians Facility Department ID 2022-02-05 Outpatient Potts, [facility] [id number] Common 10:41:01 [facility] [id number] [facility] 2021-12-22 Outpatient Potts, [facility] [id number] Common 13:11:00 Ash [facility] 2021-11-07 Outpatient Potts, STLMLC STLMLC [id number] Common 12:19:00 Ash [facility] 2021-11-05 Outpatient Potts, STLMLC STLMLC [id number] Common 08:58:00 Ash [facility] 2021-10-10 Outpatient Potts, STLMLC STLMLC [id number] Common 10:27:01 Ash [facility] 2021-07-09 Outpatient Potts, STLMLC STLMLC [id number] Common 14:23:06 Ash [facility] 2021-07-09 Outpatient Potts, STLMLC STLMLC [id number] Common 13:08:38 Ash [facility] 2021-07-09 Outpatient Potts, STLMLC STLMLC [id number] Common 12:36:47 Ash [facility] 2021-07-09 Outpatient Potts, STLMLC STLMLC [id number] Common 12:36:24 Ash [id number] [facility] 2021-07-09 Outpatient Potts, STLMLC STLMLC [id number] Common 12:34:30 Ash [facility] 2021-07-09 Outpatient Potts, STLMLC STLMLC [id number] Common 11:19:29 Ash [id number] [facility] 2021-07-09 Outpatient Potts, STLMLC STLMLC [id number] Common 11:16:51 Ash [id number] [facility] 2021-07-09 Outpatient Potts, STLMLC STLMLC [id number] Common 11:04:36 Ash [id number] [facility] 2022-05-08 2022-05-08 OFFICE STLMLC STLC [id number] Co mmon 00:00:00 00:00:00 VISIT [facility] 4 [facility] 2022-02-06 2022-02-06 OFFICE STLMLC STLMLC [id number] Co mmon 00:00:00 00:00:00 VISIT Spirit ESTAB PT - CHI LEVEL 4 [facility] 2021-11-07 2021-11-07 (TEL) STLMLC STLMLC [id number] Co mmon 00:00:00 00:00:00 [facility] 2021-11-07 2021-11-07 OFFICE STLMLC STLMLC [id number] Co mmon 00:00:00 00:00:00 VISIT Spirit ESTAB PT - CHI LEVEL 4 [facility] 2021-05-16 2021-05-16 OFFICE STLMLC STLMLC [id number] Co mmon 00:00:00 00:00:00 VISIT Spirit ESTAB PT - CHI LEVEL 4 [facility] 2021-01-31 2021-01-31 Outpatient STLMLC STLMLC [id number] Common 00:00:00 00:00:00 [facility] 2021-01-31 2021-01-31 Outpatient STLMLC STLMLC [id number] Common 00:00:00 00:00:00 [facility] 2020-08-16 2020-08-16 Outpatient STLMLC STLMLC [id number] Common 00:00:00 00:00:00 [facility] 2020-05-17 2020-05-17 Outpatient STLMLC STLMLC [id number] Common 00:00:00 00:00:00 [facility] 2020-01-12 2020-01-12 [id number] Common 08:15:00 08:15:[address] Sp[address] [facility] 2019-10-11 2019-10-11 [facility] [id number] Common 15:30:00 15:30:[address] Sp[address] [facility] 2019-07-14 2019-07-14 [facility] [id number] Common 10:15:00 10:15:[address] Sp[address] [facility] 2019-05-18 2019-05-18 [facility] [id number] Common 16:02:00 16:02:[address] Sp[address] [facility] 2019-04-24 2019-04-24 [facility] [id number] Common 14:30:00 14:30:[address] Sp[address] [facility] 2019-04-07 2019-04-07 [facility] [id number] Common 10:00:00 10:00:[address] Sp[address] [facility] 2019-03-24 2019-03-24 [facility] [id number] Common 14:41:00 14:41:[address] Sp[address] [facility] 2018-08-16 2018-08-16 [facility] [id number] Common 09:15:00 09:15:[address] Sp[address] [facility] 2018-07-29 2018-07-29 [facility] [id number] Common 09:30:00 09:30:[address] Sp[address] [facility] 2018-07-25 2018-07-25 [facility] [id number] Common 10:03:00 10:03:[address] Sp[address] [facility] 2017-12-03 2017-12-03 [facility] [id number] Common 10:15:00 10:15:[address] Sp[address] [facility] 2017-09-30 2017-09-30 [facility] [id number] Common 13:00:00 13:00:[address] Sp[address] [facility] 2017-09-03 2017-09-03 [facility] [id number] Common 10:00:00 10:00:[address] Sp[address] [facility] Results This patient has no known results.
[2022-07-16 10:11] VITALS: BP 158/88; TEMP 99.1; O2SAT 100
== END 2022-07-16 10:05 | disposition home or self-care (01) ==
LOC: ER 09:33
DX: J01.90 Acute sinusitis, unspecified (principal); R51.9 Headache, unspecified; E11.9 Type 2 diabetes mellitus without complications; I10 Essential (primary) hypertension; Z88.0 Allergy status to penicillin
CPT/HCPCS: 96372; 99283; J1100